=== PATIENT | female | born 2000 | race Caucasian/White ===

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

== ENCOUNTER 2025-01-13 08:29 | Emergency (ER) | payer OTHER ==
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
--- NOTE | 2025-01-13 10:41 | RAD REPORT ---
EXAMINATION: ONE VIEW CHEST XR CLINICAL INDICATION: Female, 24 years old.,PAIN TECHNIQUE: Frontal chest projection is submitted. Examination is limited by patient positioning and t echnique. COMPARISON: 05/16/2024 FINDINGS: The lungs are well inflated and clear. No pneumothorax or sizable effusion. The heart is normal in s ize. Mediastinal contours are unremarkable. IMPRESSION: No acute intrathoracic abnormalities.
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
[2025-01-13 11:51] VITALS: BP 138/87; TEMP 97.4; O2SAT 100
== END 2025-01-13 11:27 | disposition home or self-care (01) ==
LOC: ER 08:29
DX: M79.622 Pain in left upper arm (principal); M54.50 Low back pain, unspecified; R07.9 Chest pain, unspecified; V44.5XXA Car driver injured in collision with heavy transport vehicle or bus in traffic accident, initial encounter
CPT/HCPCS: 71045; 72100; 99284